=== PATIENT | male | born 1940 ===

== ENCOUNTER 2017-05-05 07:03 | Emergency (ER) | payer MEDICARE, BC ==
[2017-05-05 07:10] VITALS: BP 129/81
--- NOTE | 2017-05-05 07:25 | ED ---
Respiratory - HPI Summary HPI Summary: cough and post nasal drip keeping hiim up at night. No sinus pain, fever, chest pain, sob, productive cough. - History of Current Complaint Chief Complaint: UCRespiratory Stated Complaint: COUGH Time Seen by Provider: 05/05/17 07:05 Hx Obtained From: Patient Onset/Duration: Gradual Onset Timing: Constant Initial Severity: Mild Current Severity: Moderate Character: Cough (Nonproductive) Sputum Amount: None Aggravating Factor(s): Recumbent Position Alleviating Factor(s): Nothing Associated Signs and Symptoms: Nasal Congestion - Allergy/Home Medications Allergies/Adverse Reactions: Allergies Allergy/AdvReac Type Severity Reaction Status Date / Time No Known Allergies Allergy Verified 05/05/17 07:10 Home Medications: Home Medications Metoprolol Tartrate TAB* [Lopressor TAB*] 25 mg PO BID 05/05/17 [History Confirmed 05/05/17] Omeprazole CAP* [Prilosec CAP* 20 MG] 1 tab PO DAILY 05/05/17 [History Confirmed 05/05/17] Warfarin TAB(*) [Coumadin TAB(*)] 5 mg PO DAILY 05/05/17 [History Confirmed ] PMH/Surg Hx/FS Hx/Imm Hx Endocrine/Hematology History: Reports: Hx Anticoagulant Therapy Cardiovascular History: Reports: Hx Atrial Fibrillation - Surgical History Surgery Procedure, Year, and Place: 2012 aortic valve replacement Infectious Disease History: No Infectious Disease History: Denies: Traveled Outside the [place] in Last 30 Days - Family History Known Family History: Positive: Other - no related cough family history. - Social History Alcohol Use: None Substance Use Type: Reports: None Smoking Status (MU): Never Smoked Tobacco Review of Systems All Other Systems Reviewed And Are Negative: Yes Physical Exam Triage Information Reviewed: Yes Vital Signs On Initial Exam: Initial Vitals Temp Pulse Resp BP Pulse Ox 98.2 F 86 18 129/81 100 05/05/17 07:05 05/05/17 07:05 05/05/17 07:05 05/05/17 07:05 05/05/17 07:05 Vital Signs Reviewed: Yes Appearance: Positive: Well-Appearing Skin: Positive: Warm Eyes: Positive: Normal ENT: Positive: Normal ENT inspection, Nasal congestion, TMs normal. Negative: Trismus, Muffled/hoarse voice Neck: Positive: Supple, Nontender, No Lymphadenopathy Respiratory/Lung Sounds: Positive: Clear to Auscultation, Breath Sounds Present , Decreased Breath Sounds. Negative: Rales, Rhonchi Cardiovascular: Positive: IRR Abdomen Description: Positive: Nontender, No Organomegaly Musculoskeletal: Positive: Normal. Negative: Edema Left, Edema Right Neurological: Positive: Sensory/Motor Intact, Alert, Oriented to Person Place, Time, CN Intact II-III Psychiatric: Positive: Normal, Affect/Mood Appropriate. Negative: Anxious Diagnostics - Vital Signs Vital Signs Temp Pulse Resp BP Pulse Ox 05/05/17 07:05 98.2 F 86 18 129/81 100 - Laboratory Lab Statement: Any lab studies that have been ordered have been reviewed, and results considered in the medical decision making process. Disposition - Differential Dx - Cardiopulmonary Differential Diagnoses - Cardiopulmonary: Atrial Fibrillation, Atrial Flutter, Myocardial Infarction, Myocarditis, Paroxysmal SVT, Paroxysmal VT, Pulmonary Edema, Pulmonary Embolism - Diagnoses Provider Diagnoses: Cough Discharge - Discharge Plan Condition: Good Disposition: HOME Prescriptions: Acetaminop/Codeine 30 MG TAB* [Tylenol/Codeine 30 MG TAB*] 1 tab PO Q8H PRN #12 tab MDD 2 PRN Reason: Cough Albuterol HFA INHALER* [Ventolin HFA Inhaler*] 1 puff INH Q6H PRN #1 mdi PRN Reason: Cough Azithromyxin CHARITY (NF) [Z-Charity (Zithromax) 250 mg tabs #6] 2 tab PO .TODAY, THEN 1 DAILY #6 tab Benzonatate CAP* [Tessalon 100 MG CAP*] 100 mg PO TID PRN #20 cap PRN Reason: Cough Patient Education Materials: Cold Symptoms (ED) Additional Instructions: return here for any worsening. Start the azithromycin if symptoms do not improve in 3 days.
== END 2017-05-05 07:28 | disposition home or self-care (01) ==
LOC: UCCORT 07:03
DX: R05 Cough (principal); Z79.01 Long term (current) use of anticoagulants; I48.91 Unspecified atrial fibrillation
CPT/HCPCS: 99202; G0463